=== PATIENT | female | born 1945 | race Two or more races ===

== ENCOUNTER 2024-10-19 21:51 | Emergency (ER) | payer OTHER, SELFPAY ==
[2024-10-19 22:02] VITALS: BP 134/99
[2024-10-20] MEDS: TORADOL 30 MG IM (00:14)
[2024-10-20 00:25] VITALS: BP 152/80
--- NOTE | 2024-10-20 00:26 | ED.GENMED ---
History of Present Illness
General
Chief Complaint: Musculo-Skeletal Complaint
Time Seen by Provider: 10/19/24 23:32
History of Present Illness
History of Present Illness:
79-year-old female with history of arthritis with prior left hip replacement presenting with right hip pain after a fall 3 days ago. Patient reports that she slid from her chair onto the floor. Denies head injury or loss of consciousness. Has
since had difficulty ambulating with pain to the right hip. Denies numbness or tingling to the extremity. She has required a lot of assistance to bear weight. Denies any abdominal pain. Denies chest pain or difficulty breathing. Denies any
additional injuries from the fall. She took tramadol prior to arrival for pain. Denies additional acute medical complaints
Phy Exam
Physical Exam
Physical Exam:
General: Well-appearing, no clinical signs of dehydration, nontoxic and in no acute distress
HEENT: protecting airway
Neck: appears supple
CV: Normal heart rate, regular rhythm
Resp: No accessory muscle use, no increased work of breathing
Abd: Soft and non-distended, no tenderness to palpation
Extremities: No deformities, no swelling. Generalized tenderness to the right hip joint. Range of motion limited secondary to pain. Distal sensation intact.
Neuro: alert, no focal neurologic deficit
: deferred
Rectal: deferred
Psych: Normal affect
Skin: Intact
Course
Orders/Labs/Results
Orders:
Orders
10/19/24 22:10
Hip, Right 2-3 Views [CR Hip - RT w/wo Pel 2-3 Vw*] Urgent
Comment:
Reason For Exam: injury and pain
Include a pelvis x-ray?: Yes
10/20/24 00:[address] [CT Pelvis W/o Iv Contrast] Urgent
Comment:
Reason For Exam: right hip and pelvis pain after fall
Ketorolac [Toradol] 30 mg IM NOW STA
Vital Signs
Initial and Last Documented VS:
Initial Vital Signs
Temp Pulse Resp BP
97.6 F 96 20 134/99
10/19/24 22:02 10/19/24 22:02 10/19/24 22:02 10/19/24 22:02
Last Documented Vital Signs
Temp Pulse Resp BP Pulse Ox
97.6 F 113 20 152/80 98
10/19/24 22:02 10/20/24 01:47 10/20/24 01:47 10/20/24 00:25 10/20/24 01:47
MDM/Problems Addressed
MDM/Problems Addressed:
79-year-old female presenting with right hip pain after a fall. Vitals are normal.
On exam, patient is no acute distress, however appears uncomfortable secondary to pain. Patient had an x-ray prior to my assessment, no obvious fracture, however there is mention of a potential blastic lesion. Suspect this to be incidental finding
given that pain occurred after trauma. The setting of potential malignancy and pain after trauma, plan for CT imaging of the pelvis to rule out occult fracture. No present neurovascular compromise. Will administer Toradol for pain. No additional
signs of trauma on exam.
02:10 -CT without fracture or dislocation. No evidence of hip effusion. There is a 13 mm sclerotic focus in the right pubic body likely representing a bony island. On reassessment, patient is requesting to go home. Suspected musculoskeletal
injury, worsened by known arthritis. Son reports that he will talk to the PCP about physical therapy. Advised that if symptoms are persisting, may need MRI. Return precautions discussed and patient verbalized understanding
*Critical Care Note
Total Time (30-74mins, 75-104mins- exclusive of procedures): Not Applicable
ED Attending Note
-
Portions of this chart may have been created with voice recognition software.� Occasional wrong word or��sound alike� substitutions may have occurred due to the inherent limitations of voice recognition software.
Discharge Plan
Departure
Prescriptions:
No Action
gabapentin
300 mg PO TID
tramadol
1 tab PO Q12H
Referrals:
Brenda Ruelas MD [Family Provider] -
Interventions
Interventions:
*General Assessment Last Done: 10/20/24 00:26
*ED COVID-19 Vaccine History Last Done: 10/20/24 00:26
ED-Musculoskeletal Assessment Last Done: 10/20/24 00:26
ED- Neurological Assessment Last Done: 10/20/24 00:26
ED-Skin Assessment Last Done: 10/20/24 00:26
Discharge Date and Time
Print Language: NIUEAN
== END 2024-10-20 02:15 | disposition home or self-care (01) ==
LOC: EMR 21:51
PROVIDERS: EMERGENCY PHYSICIAN Student in an Organized Health Care Education/Training Program; FAMILY PHYSICIAN Internal Medicine
DX: M25.551 Pain in right hip (principal); Z96.642 Presence of left artificial hip joint
CPT/HCPCS: 99284; 72192; 73502